=== PATIENT | female | born 1950 | race Caucasian/White ===

== ENCOUNTER 2021-05-05 00:59 | Inpatient (IN) ==
[2021-05-05] MEDS ORDERED: Famotidine 20 MG/2 ML VIAL IVP ONE (01:42)
[2021-05-05 02:03] LABS: BUN/Creatinine Ratio 21 (6-26); Blood Urea Nitrogen 15 mg/dL (8-23); Calcium 8.4 mg/dL (8.6-10.3); Carbon Dioxide 24 mEq/L (23-29); Chloride 106 mEq/L (98-107); Glucose 160 mg/dL (70-105); Osmolality,Calculated 288 (280-300); Potassium 4.8 mEq/L (3.5-5.1); Sodium 137 mEq/L (136-145); Troponin I 0.03 ng/mL (< 0.04); eGFR For African Americans > 60 (> 60); eGFR For Non-African Americans > 60 (> 60)
[2021-05-05 02:07] LABS: Basophils % 0.2 %; Eosinophils # 0.2 K/mcL (0.0-0.6); Eosinophils % 2.7 %; Hematocrit 40.6 % (35.3-44.9); Hemoglobin 13.4 g/dL (11.5-15.4); Immature Granulocytes % 0.5 % (0-4); Lymphocytes % 15.7 %; Mean Corpuscular Hemoglobin 29.8 pg (28.0-33.3); Mean Corpuscular Volume 90.2 fL (83.0-100.0); Mean Platelet Volume 10.9 fL (9.4-12.4); Monocytes # 0.7 K/mcL (0.0-1.3); Monocytes % 7.6 %; Neutrophils # 6.3 K/mcL (1.6-8.9); Platelet Count 127 K/mcL (140-400); Red Cell Distribution Width 12.6 % (11.5-14.5); Segmented Neutrophils % 73.3 %; White Blood Count 8.6 K/mcL (4.3-11.1)
[2021-05-05 02:09] LABS: Alanine Aminotransferase 19 Units/L (7-52); Albumin 4.2 g/dL (3.5-5.7); Albumin/Globulin Ratio 2.1 (1.1-2.2); Alkaline Phosphatase 55 Units/L (34-104); Aspartate Amino Transferase 33 Units/L (13-39); Bilirubin,Direct 0.1 mg/dL (0.0-0.2); Bilirubin,Indirect 0.2 mg/dL (0.0-1.0); Bilirubin,Total 0.3 mg/dL (0.3-1.0); Lipase 58 Units/L (11-82); Total Protein 6.2 g/dL (6.4-8.9)
[2021-05-05 02:09] LABS: Lymphocytes # 1.4 K/mcL (0.6-4.6)
[2021-05-05] MEDS ORDERED: Aspirin 325 MG TABLET PO ONE (05:07)
[2021-05-05] MEDS ORDERED: *HR* Heparin 5,000 UNIT/ML VIAL IVP PRN ×2 (05:09)
[2021-05-05] MEDS ORDERED: *HR* Heparin 5,000 UNIT/ML VIAL IVP ONE (05:09)
[2021-05-05] MEDS: Heparin 25,000UNIT/250ML 1/2NS 25,000 UNIT/250 ML IV.SOLN IVC SCH (06:16)
[2021-05-05] MEDS ORDERED: Naloxone 0.4 MG/ML INJ IVP PRN (06:23)
[2021-05-05] MEDS ORDERED: Perflutren Lipid Microsphere 1.3 ML in 0.9 % Sodium Chloride 8.7 ML IVP PRN (06:28)
[2021-05-05] MEDS: Aspirin Enteric Coated 81 MG Tablet PO SCH (10:05)
[2021-05-05 13:09] LABS: Heparin anti-factor XA UFH 0.38 IU/mL (0.30-0.70)
[2021-05-05 13:10] LABS: Prothrombin Time 11.6 Seconds (9.4-12.1)
[2021-05-05 13:22] LABS: Chol/HDL Ratio 2.6 (0-4.9); Magnesium 2.2 mg/dL (1.6-2.6)
[2021-05-05] MEDS: carvediloL 6.25 MG TABLET PO SCH (16:21)
[2021-05-06 03:19] LABS: Basophils % 0.3 %; Eosinophils # 0.2 K/mcL (0.0-0.6); Eosinophils % 1.8 %; Hemoglobin 13.5 g/dL (11.5-15.4); Immature Granulocytes % 0.3 % (0-4); Lymphocytes # 1.8 K/mcL (0.6-4.6); Lymphocytes % 16.7 %; Mean Corpuscular HGB Conc 32.1 g/dL (31.6-35.5); Mean Corpuscular Hemoglobin 29.2 pg (28.0-33.3); Mean Corpuscular Volume 90.7 fL (83.0-100.0); Mean Platelet Volume 11.8 fL (9.4-12.4); Monocytes # 0.9 K/mcL (0.0-1.3); Monocytes % 8.5 %; Platelet Count 132 K/mcL (140-400); Red Blood Count 4.63 M/mcL (3.82-4.97); Red Cell Distribution Width 12.9 % (11.5-14.5); Segmented Neutrophils % 72.4 %
[2021-05-06 03:46] LABS: BUN/Creatinine Ratio 18 (6-26); Blood Urea Nitrogen 13 mg/dL (8-23); Calcium 8.9 mg/dL (8.6-10.3); Carbon Dioxide 24 mEq/L (23-29); Chloride 107 mEq/L (98-107); Glucose 132 mg/dL (70-105); Osmolality,Calculated 292 (280-300); Potassium 3.5 mEq/L (3.5-5.1); Sodium 140 mEq/L (136-145); eGFR For African Americans > 60 (> 60); eGFR For Non-African Americans > 60 (> 60)
[2021-05-06] MEDS: Heparin 25,000UNIT/250ML 1/2NS 25,000 UNIT/250 ML IV.SOLN IVC SCH (07:47)
[2021-05-06] MEDS: Aspirin Enteric Coated 81 MG Tablet PO SCH (07:57)
[2021-05-06] MEDS: carvediloL 6.25 MG TABLET PO SCH ×2 (07:57→17:45)
[2021-05-06] MEDS ORDERED: *HR* FentaNYL (PF) 100 MCG/2 ML VIAL ONE (08:23)
[2021-05-06] MEDS ORDERED: Nitroglycerin 1,000 MCG/5 ML VIAL IV ONE (08:24)
[2021-05-06] MEDS ORDERED: 0.9 % Sodium Chloride 1,000 ML ONE ×2 (08:24→08:25)
[2021-05-06] MEDS ORDERED: ISOVUE-370 200 ML INFUS..BTL ONE (08:24)
[2021-05-06] MEDS ORDERED: *HR* Heparin 10,000 UNIT/10 ML VIAL ONE (08:24)
[2021-05-06] MEDS ORDERED: Heparin 1,000 UNITS/500 mL 500 ML ONE (08:24)
[2021-05-06] MEDS ORDERED: *HR* Midazolam HCl 2 MG/2 ML VIAL ONE (08:24)
[2021-05-06] MEDS ORDERED: Tirofiban 12.5 MG/250ML 12.5 MG/250 ML BAG ONE (09:08)
[2021-05-06] MEDS ORDERED: *HR* Ticagrelor 90 MG TABLET ONE (09:23)
[2021-05-06] MEDS ORDERED: Tirofiban 12.5 MG/250ML 12.5 MG/250 ML BAG IVC SCH (11:30)
[2021-05-06] MEDS: 0.9 % Sodium Chloride 1,000 ML IVC SCH (13:45)
[2021-05-06] MEDS: *HR* Ticagrelor 90 MG TABLET PO SCH (19:17)
[2021-05-07] MEDS: 0.9 % Sodium Chloride 1,000 ML IVC SCH (02:10)
[2021-05-07] MEDS: Heparin 25,000UNIT/250ML 1/2NS 25,000 UNIT/250 ML IV.SOLN IVC SCH (02:26)
[2021-05-07] MEDS: *HR* Ticagrelor 90 MG TABLET PO SCH (08:48)
[2021-05-07] MEDS: Aspirin Enteric Coated 81 MG Tablet PO SCH (08:48)
[2021-05-07] MEDS: carvediloL 6.25 MG TABLET PO SCH (08:48)
[2021-05-07 11:01] VITALS: BP 150/75; PULSE 79; TEMP 98; O2SAT 99
== END 2021-05-07 14:12 | disposition home or self-care (01) | DRG 247 ==
LOC: 2ANU 00:59 → EMEROOARM 00:59 → SUATTDRO 06:08 → 2ANU 06:40
PROVIDERS: ADMIT Family Medicine; ATTEND Internal Medicine